=== PATIENT | male | born 1970 | race Two or more races ===

== ENCOUNTER → 2024-05-13 | Outpatient (BNVA) | payer BC, SELFPAY | END | disposition home or self-care (01) | PROVIDERS: PCP Nurse Practitioner Family; Referring Provider Nurse Practitioner Family; Visit Provider Urology | DX: N40.0 Benign prostatic hyperplasia without lower urinary tract symptoms (principal); Z87.442 Personal history of urinary calculi; E66.9 Obesity, unspecified; Z68.34 Body mass index [BMI] 34.0-34.9, adult | CPT/HCPCS: 81003; 99212; G0463 ==

== ENCOUNTER → 2025-02-23 | Outpatient (CLI) | payer OTHER, SELFPAY ==
--- NOTE | 2025-02-23 08:54 | XR_ITS ---
EXAMINATION: Ankle, left 3 views . Technique: Ankle AP, oblique, lateral 3 views Date and time of exam: February 23, 2025 1003 hours INDICATIONS: Ankle fractures status post operative reduction internal fixation October 2024. FINDINGS: Operative reduction internal fixation fractures distal fibular shaft and distal tibia I do not have prior films for comparison There is a defect in the cortex and shaft of the distal tibia on the medial side measuring at least 25 mm, osteomyelitis would be included in the differential Partial healing of the fractures tibia and fibula although the tibial fracture lines are still quite evident IMPRESSION: Partial healing fractures distal tibia and fibular shaft with satisfactory alignment Large defect in the cortex and shaft of the distal tibia as above, if osteomyelitis is a clinical consideration, suggest CT scan ankle post contrast follow-up
== END | disposition home or self-care (01) ==
PROVIDERS: PCP Family Medicine; Referring Provider Orthopaedic Surgery; Visit Provider Nurse Practitioner Family
DX: S82.872D Displaced pilon fracture of left tibia, subsequent encounter for closed fracture with routine healing (principal); X58.XXXD Exposure to other specified factors, subsequent encounter; M25.871 Other specified joint disorders, right ankle and foot
CPT/HCPCS: 73610